=== PATIENT | female | born 1990 | race Asian ===

== ENCOUNTER 2020-02-09 18:32 | Outpatient (CLI) | payer BC | END 2020-02-09 23:59 | disposition home or self-care (01) | LOC: LAB 18:32 | PROVIDERS: ATTEND Family Medicine | DX: Z20.828 Contact with and (suspected) exposure to other viral communicable diseases (principal) | CPT/HCPCS: 36415 ==

== ENCOUNTER 2020-02-26 13:31 | Outpatient (CLI) | payer BC | END 2020-02-26 23:59 | disposition home or self-care (01) | LOC: LAB 13:31 | PROVIDERS: ATTEND Family Medicine | DX: R05 Cough (principal) | CPT/HCPCS: 36415 ==

== ENCOUNTER 2020-02-28 09:32 | Emergency (ER) | payer BC, OTHER ==
[~2020-02-28] VITALS: Ht 157.5 cm; Wt 68.0 kg
[2020-02-28 09:35] VITALS: BP 128/77
--- NOTE | 2020-02-28 09:50 | NUR ---
COVID SWAB SENT TO LAB
--- NOTE | 2020-02-29 03:17 | NUR ---
LAB CALLED REGARDING COVID NEGATIVE RESULT.
== END 2020-02-28 09:51 | disposition home or self-care (01) ==
LOC: ER 09:32
DX: Z03.818 Encounter for observation for suspected exposure to other biological agents ruled out (principal)
CPT/HCPCS: 99283; U0003

== ENCOUNTER 2020-05-09 08:51 | Emergency (ER) | payer OTHER ==
[~2020-05-09] VITALS: Ht 157.5 cm; Wt 68.0 kg
[2020-05-09 08:53] VITALS: BP 125/77
== END 2020-05-09 09:54 | disposition home or self-care (01) ==
LOC: ER 08:51
DX: Z20.828 Contact with and (suspected) exposure to other viral communicable diseases (principal)
CPT/HCPCS: 99283; C9803; U0003

== ENCOUNTER 2020-05-29 16:59 | Emergency (ER) | payer OTHER ==
[~2020-05-29] VITALS: Ht 157.5 cm; Wt 63.5 kg
[2020-05-29 17:01] VITALS: BP 128/81
--- NOTE | 2020-05-29 17:41 | NUR ---
Patient discharged to home in stable condition. Written and verbal after care instructions given. Patient verbalizes understanding of instruction.
== END 2020-05-29 17:41 | disposition home or self-care (01) ==
LOC: ER 16:59
DX: Z20.828 Contact with and (suspected) exposure to other viral communicable diseases (principal)
CPT/HCPCS: 99283; C9803; U0003

== ENCOUNTER 2020-06-19 15:12 | Emergency (ER) | payer OTHER ==
[~2020-06-19] VITALS: Ht 157.5 cm; Wt 65.8 kg
[2020-06-19 15:13] VITALS: BP 121/83
--- NOTE | 2020-06-19 16:06 | NUR ---
COVID SWAB SENT
--- NOTE | 2020-06-19 16:07 | NUR ---
Patient discharged to home in stable condition. Verbal after care instructions given. Patient verbalizes understanding of instruction.
== END 2020-06-19 16:08 | disposition home or self-care (01) ==
LOC: ER 15:12
DX: Z20.828 Contact with and (suspected) exposure to other viral communicable diseases (principal)
CPT/HCPCS: 99283; C9803; U0003

== ENCOUNTER 2020-06-26 17:33 | Emergency (ER) | payer OTHER ==
[~2020-06-26] VITALS: Ht 157.5 cm; Wt 59.9 kg
[2020-06-26 17:35] VITALS: BP 126/68
--- NOTE | 2020-06-26 18:44 | NUR ---
COVID SWAB SENT.
== END 2020-06-26 18:45 | disposition home or self-care (01) ==
LOC: ER 17:34
DX: Z20.828 Contact with and (suspected) exposure to other viral communicable diseases (principal)
CPT/HCPCS: 99283; C9803; U0003

== ENCOUNTER 2020-07-03 16:10 | Emergency (ER) | payer OTHER ==
[~2020-07-03] VITALS: Ht 157.5 cm; Wt 60.3 kg
[2020-07-03 16:16] VITALS: BP 128/66
--- NOTE | 2020-07-03 16:44 | NUR ---
COVID SWAB SENT. Patient discharged to home in stable condition. Written and verbal after care instructions given. Patient verbalizes understanding of instruction.
== END 2020-07-03 16:46 | disposition home or self-care (01) ==
LOC: ER 16:10
DX: Z20.828 Contact with and (suspected) exposure to other viral communicable diseases (principal)
CPT/HCPCS: 99283; C9803; U0003

== ENCOUNTER 2020-07-10 10:02 | Emergency (ER) | payer OTHER ==
[~2020-07-10] VITALS: Ht 157.5 cm; Wt 63.5 kg
[2020-07-10 10:03] VITALS: BP 121/61
--- NOTE | 2020-07-10 10:33 | NUR ---
COVID SWAB SENT. Patient discharged to home in stable condition. Written and verbal after care instructions given. Patient verbalizes understanding of instruction.
--- NOTE | 2020-07-10 10:33 | NUR ---
Patient discharged to home in stable condition. Written and verbal after care instructions given. Patient verbalizes understanding of instruction.
== END 2020-07-10 10:35 | disposition home or self-care (01) ==
LOC: ER 10:04
DX: Z20.828 Contact with and (suspected) exposure to other viral communicable diseases (principal)
CPT/HCPCS: 99283; C9803; U0003

== ENCOUNTER 2020-07-20 16:24 | Emergency (ER) | payer OTHER ==
[~2020-07-20] VITALS: Ht 157.5 cm; Wt 63.5 kg
[2020-07-20 16:30] VITALS: BP 124/62
== END 2020-07-20 16:54 | disposition home or self-care (01) ==
LOC: ER 16:25
DX: Z20.828 Contact with and (suspected) exposure to other viral communicable diseases (principal)
CPT/HCPCS: 99283; C9803; U0003

== ENCOUNTER 2020-08-05 16:18 | Emergency (ER) | payer OTHER ==
[~2020-08-05] VITALS: Ht 157.5 cm; Wt 70.3 kg
[2020-08-05 16:20] VITALS: BP 120/71
--- NOTE | 2020-08-05 16:25 | NUR ---
Patient discharged to home in stable condition. Written and verbal after care instructions given. Patient verbalizes understanding of instruction.
== END 2020-08-05 16:27 | disposition home or self-care (01) ==
LOC: ER 16:19
DX: Z20.828 Contact with and (suspected) exposure to other viral communicable diseases (principal)
CPT/HCPCS: 99283; C9803; U0003

== ENCOUNTER 2020-08-14 16:13 | Emergency (ER) | payer OTHER ==
[~2020-08-14] VITALS: Ht 157.5 cm; Wt 63.5 kg
[2020-08-14 16:13] VITALS: BP 123/78
--- NOTE | 2020-08-14 17:13 | NUR ---
Patient discharged to home in stable condition. Written and verbal after care instructions given. Patient verbalizes understanding of instruction. Pt ambulatory with a steady gait
== END 2020-08-14 17:24 | disposition home or self-care (01) ==
LOC: ER 16:13
DX: Z20.828 Contact with and (suspected) exposure to other viral communicable diseases (principal)
CPT/HCPCS: 99283; C9803; U0003

== ENCOUNTER 2020-09-23 17:50 | Emergency (ER) | payer OTHER ==
[~2020-09-23] VITALS: Ht 157.5 cm; Wt 63.5 kg
[2020-09-23 17:55] VITALS: BP 128/80
== END 2020-09-23 18:39 | disposition home or self-care (01) ==
LOC: ER 17:52
DX: U07.1 COVID-19 (principal)
CPT/HCPCS: 87426; 99283; C9803; U0003

== ENCOUNTER 2020-12-17 07:57 | Emergency (ER) | payer OTHER ==
[~2020-12-17] VITALS: Ht 157.5 cm; Wt 65.8 kg
[2020-12-17 07:59] VITALS: BP 130/80
--- NOTE | 2020-12-17 08:40 | NUR ---
COVID SWAB SENT. Patient discharged to home in stable condition. Written and verbal after care instructions given. Patient verbalizes understanding of instruction.
== END 2020-12-17 08:41 | disposition home or self-care (01) ==
LOC: ER 07:58
DX: Z20.822 Contact with and (suspected) exposure to COVID-19 (principal)
CPT/HCPCS: 99283; C9803; U0003

== ENCOUNTER 2020-12-17 08:48 | Outpatient (CLI) | payer BC | END 2020-12-17 23:59 | disposition home or self-care (01) | LOC: LAB 08:48 | PROVIDERS: ATTEND Family Medicine | DX: Z75.3 Unavailability and inaccessibility of health-care facilities (principal) ==

== ENCOUNTER 2020-12-30 14:27 | Emergency (ER) | payer BC ==
[~2020-12-30] VITALS: Ht 157.5 cm; Wt 70.3 kg
[2020-12-30 14:29] VITALS: BP 119/58
--- NOTE | 2020-12-30 15:19 | NUR ---
COVID SWAB SENT.
--- NOTE | 2020-12-30 15:20 | NUR ---
Patient discharged to home in stable condition. Written and verbal after care instructions given. Patient verbalizes understanding of instruction.
== END 2020-12-30 15:20 | disposition home or self-care (01) ==
LOC: ER 14:30
DX: Z20.822 Contact with and (suspected) exposure to COVID-19 (principal)
CPT/HCPCS: 99283; C9803; U0003

== ENCOUNTER 2021-01-08 08:52 | Emergency (ER) | payer BC, OTHER ==
[~2021-01-08] VITALS: Ht 167.6 cm; Wt 61.2 kg
[2021-01-08 09:20] VITALS: BP 118/71
--- NOTE | 2021-01-08 09:28 | NUR ---
covid 19 swab collected and sent to lab
--- NOTE | 2021-01-08 09:28 | NUR ---
Patient discharged to home in stable condition. Written and verbal after care instructions given. Patient verbalizes understanding of instruction.
== END 2021-01-08 09:31 | disposition home or self-care (01) ==
LOC: ER 08:52
DX: Z20.822 Contact with and (suspected) exposure to COVID-19 (principal)
CPT/HCPCS: 99283; C9803; U0003

== ENCOUNTER 2021-02-04 15:52 | Emergency (ER) | payer OTHER ==
[~2021-02-04] VITALS: Ht 157.5 cm; Wt 49.9 kg
[2021-02-04 15:55] VITALS: BP 116/77
--- NOTE | 2021-02-04 16:00 | NUR ---
The patient bibs for covid 19 testing, denies any symptoms.
== END 2021-02-04 16:15 | disposition home or self-care (01) ==
LOC: ER 15:54
DX: Z20.822 Contact with and (suspected) exposure to COVID-19 (principal)
CPT/HCPCS: 99283; C9803; U0003

== ENCOUNTER 2022-02-12 10:18 | Outpatient (CLI) | payer BC | END 2022-02-12 23:59 | disposition home or self-care (01) | LOC: LAB 10:18 | PROVIDERS: ATTEND Nurse Practitioner Acute Care | DX: R50.9 Fever, unspecified (principal); Z20.822 Contact with and (suspected) exposure to COVID-19 | CPT/HCPCS: 87426; 87804; C9803 ==

== ENCOUNTER 2023-03-02 09:55 | Outpatient (CLI) | payer BC ==
[2023-03-02 11:47] LABS: BASOPHILS # (AUTO) 0.1 K/uL (0.0-0.2); BASOPHILS % (AUTO) 0.7 % (0.0-2.0); EOSINOPHILS % (AUTO) 7.2 % (0.0-6.0); HEMATOCRIT 39 % (33-45); HEMOGLOBIN 12.6 g/dL (11.5-14.8); LYMPHOCYTES # (AUTO) 3.3 K/uL (0.8-4.8); LYMPHOCYTES % (AUTO) 26.9 % (20.0-44.0); MEAN CORPUSCULAR HGB CONC 33 g/dl (31.0-36.0); MEAN CORPUSCULAR VOLUME 90 fL (82-100); MONOCYTES # (AUTO) 0.7 K/uL (0.1-1.30); MONOCYTES % (AUTO) 5.7 % (2.0-12.0); NEUTROPHILS # (AUTO) 7.2 K/uL (1.8-8.9); NEUTROPHILS % (AUTO) 59.5 % (43.0-81.0); PLATELET COUNT (AUTO) 414 K/uL (150-450); WHITE BLOOD COUNT (AUTO) 12.2 K/uL (4.3-11.0)
[2023-03-05 06:07] LABS: *HGBFRC HEMOGLOBIN A2 3.1 % (1.8-3.2)
== END 2023-03-02 23:59 | disposition home or self-care (01) ==
LOC: LAB 09:55
PROVIDERS: ATTEND Obstetrics & Gynecology
DX: Z20.2 Contact with and (suspected) exposure to infections with a predominantly sexual mode of transmission (principal); Z31.430 Encounter of female for testing for genetic disease carrier status for procreative management; N91.0 Primary amenorrhea; Q99.2 Fragile X chromosome; Z33.1 Pregnant state, incidental
CPT/HCPCS: 36415; 84443-TC; 85025-TC; 86480; 86592; 86593; 86765; 86803; 86850-TC; 87340; 87806